=== PATIENT | male | born 1985 | race Caucasian/White ===

== ENCOUNTER 2021-10-03 13:41 | Emergency (ER) | payer SELFPAY ==
[~2021-10-03] VITALS: Ht 170.2 cm; Wt 99.8 kg
[2021-10-03] MEDS ORDERED: ASPIRIN 325 MG TAB PO NR (14:00)
[2021-10-03 14:13] LABS: BASOPHILS % 0.2 % (0.0-1.0); EOSINOPHILS % 0.4 % (0.0-6.0); HEMATOCRIT 46.2 % (38.2-49.6); LYMPHOCYTES # (AUTO) 1.9 (1.0-3.2); LYMPHOCYTES % 33.4 % (18.0-39.1); MEAN CORPUSCULAR HEMOGLOBIN 28.6 pg (28-32); MEAN CORPUSCULAR HGB CONC 34.6 g/dL (31-35); MEAN CORPUSCULAR VOLUME 82.5 fL (81-99); MONOCYTES # (AUTO) 0.7 (0.2-0.8); NEUTROPHILS % 52.8 % (38.7-80.0); PLATELET COUNT 323 x10e3/uL (140-360); RED CELL DISTRIBUTION WIDTH 12.2 % (11.7-14.4)
[2021-10-03 14:31] LABS: ANION GAP 18.6 mmol/L (8-16); CALCIUM 9.5 mg/dL (8.4-10.2); CREATININE, SERUM 0.78 mg/dL (0.72-1.25); POTASSIUM 4.6 mmol/L (3.5-5.1)
[2021-10-03] MEDS ORDERED: DECADRON4 M1 PO (14:57)
[2021-10-03] MEDS ORDERED: PROAIR HFA INH8.5 GM INH (14:57)
== END 2021-10-03 15:30 | disposition home or self-care (01) ==
LOC: ER 13:45
DX: R05.9 Cough, unspecified (principal); U07.1 COVID-19; R06.00 Dyspnea, unspecified; J40 Bronchitis, not specified as acute or chronic; F11.20 Opioid dependence, uncomplicated
CPT/HCPCS: 36415; 71045; 80048; 84484; 85025; 93005; 99284